=== PATIENT | male | born 1935 | race Caucasian/White ===

== ENCOUNTER 2024-10-14 09:59 | Emergency (ER) | payer MEDICARE, OTHER, SELFPAY ==
--- OUTSIDE RECORDS SUMMARY | 2024-10-14 10:01 | XMS_ITS | Clinical Summary ---
Author Organization [employer] [facility] Address [place], [place] [address] Care Team Providers Care Psych Specialist Name Role Phone Pcp, No Primary Care Provider Unavailabl e Allergies No known active allergies Medications omeprazole 20 mg tablet Take 1 Tablet (20 mg) by mouth once daily before a meal. 0 3 Active medication order composer Vitamins: - vitamin C - calcium - glucosamine - armida - arnica - tumeric - multivitamin - fish oil - saw palmetto 4 Active carbidopa-levod opa, 25-100 mg, (Sinemet) 25-100 mg tabletIndicatio ns:Parkinson disease, symptomatic (HC) Take 1 Tablet by mouth three times daily. 270 Tablet 3 4 Active predniSONE (DELTASONE) 20 mg tabletIndicatio ns:Acute left ankle pain 2 tabs daily for 3 days, 1 tab daily for 3 days, and 1/2 tab daily for 4 days. 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 Office Visit [facility] [address] [place] [address] Alexei Luong MD Musculoskeletal Problem (Consultation for LEFT Ankle pain /DOO about 3 weeks ago.) 10/02/2024 1:15 PM CHILD WELFARE WORKER Ancillary Procedure [facility] [address] [place] [address] 10/02/2024 Travel from Last 3 Months Social History Tobacco Use Types Packs/Day Years Used Date Smoking Tobacco: Former Cigarettes Smokeless Tobacco: Never Tobacco Cessation:Counseling Given: Yes Alcohol Use Standard Drinks/Week Comments Yes 0 (1 standard drink = 0.6 oz pur e alcohol) minimal wine PHQ-2 Answer Date Recorded PHQ-2 TOTAL SCORE 0 05/01/2024 Social Connections Answer Date Recorded Do you often feel lonely or isolated from those around you? 0 05/01/2024 Financial Resource Strain Answer Date R ecorded Difficulty of Paying Living Expenses 3 05/01/2024 Difficulty of Paying Living Expenses Not on file 05/01/2024 Food Insecurity Answer Date Recorded Do you worry your food will run out before you are able to buy more? 1 05/01/2024 Transportation Needs Answer Date Record ed Does lack of transportation keep you from medica l appointments? 1 05/01/2024 Does lack of transportation keep you from work, meetings or getting things that you need? 1 05/01/2024 Housing Stability Answer Date Recorded What is your housing situation today? 1 05/01/2024 Utilities Answer Date Recorded Do you have trouble paying f or utilities (for example, heat, electricity, water, phone)? 1 05/01/2024 Sex and Gender Information Value Date Recorded Sex Assigned at Not on file Legal Sex Male 9:46 AM CDT Gender Identity Not on file Sexual Orientation Not on file Obstetrics History Last Filed Vital Signs Vital Sign Reading Time Taken Comments Blood Pressure 177/76 10/02/2024 1:56 PM CHILD WELFARE WORKER Pulse 78 10/02/2024 1:56 PM CHILD WELFARE WORKER Temperature 36.7 C (98.1 F) 06/22/2023 3:08 PM CDT Respiratory Rate - - Oxygen Saturation 100% 10/02/2024 1:56 PM CHILD WELFARE WORKER Inhaled Oxygen Concentration - - Weight 67.9 kg (149 lb 9.6 oz) 10/02/2024 1:56 P M CHILD WELFARE WORKER Height 172.7 cm (5' 8) 05/01/2024 9:07 AM CDT Body Mass Index 22.75 05/01/2024 9:07 AM CDT Plan of Treatment Health Maintenance Due Date Last Done Comments Tdap 1946 Tetanus booster 1955 Pneumococcal series for age 50+ (1 of 1 - PCV) 1985 Zoster (shingles) series for age 50+ (1 of 2) 1985 RSV vaccine for adults or (1 - 1-dose 75+ series) 2010 COVID-19 vaccine series ( season) 2024 Influenza for age 65+ 05/06/2024 BMI (ht and wt on same day) for age 18+ 05/01/2025 05/01/2024 Depression screening for age 12+ 05/02/2025 05/02/2024, 05/02/2024, 05/01/2024, Additional history exists Medicare Wellness for age 65+ 05/02/2025 05/01/2024 Procedures Procedure Name Priority Date/Time Associated Diagnosis Comments XR ANKLE 3 VIEWS LEFT Routine 10/02/2024 3:06 PM CHILD WELFARE WORKER Acute left ankle pain from Last 3 Months Results * XR ANKLE 3 VIEWS LEFT (10/02/2024 3:06 PM CHILD WELFARE WORKER) Anatomical Region Laterality Modality ANKLES, ANKLE L Computed Radiogr aphy 10/02/2024 3:24 PM CHILD WELFARE WORKER Narrative 10/02/2024 3:24 PM CHILD WELFARE WORKER For Patients: As a result of the Century Cures Act, medical imaging exams and procedure reports are released immediately into your electronic medical record. You may view this report before your referring provider. If you have questions, please contact your health care provider. Indication: Left ankle pain Technique: Left ankle 3 views Comparison: None Findings: Vascular calcifications. Soft tissue densities posterior to the Achilles tendon. Incompletely ossified posterior calcaneal spur. Heterotopic densities associated with the plantar fascia. Plantar calcaneal spur. Tibiotalar spurring. Intact mortise. No acute fracture. Impression: No sign of acute injury. 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 Dictated by Jimi Hatch MD @ 10/02/2024 3:24:07 PM (Electronically Signed) Procedure Note Jimi Hatch MD - 10/02/2024 For Patients: As a result of the Century Cures Act, medical imagingexams and procedure reports are released immediately into your electronicmedical record. You may view this report before your referring provider.If you have questions, please contact your health care provider. Indication: Left ankle pain Technique: Left ankle 3 views Comparison: None Findings: Vascular calcifications. Soft tissue densities posterior to the Achillestendon. Incompletely ossified posterior calcaneal spur. Heterotopicdensities associated with the plantar fascia. Plantar calcaneal spur.Tibiotalar spurring. Intact mortise. No acute fracture. Impression: No sign of acute injury. Degenerative joint disease and calcaneal spurswith chronic Achilles tendinosis and plantar fasciitis. Dictated by Jimi Hatch MD @ 10/02/2024 3:24:07 PM (Electronically Signed) Alexei Luong MD GENERAL IMAGING Final Res ult from Last 3 Months Insurance MEDICARE [place] ONLY COMMERCIAL Care Teams Psych Specialist Relationship Specialty Start Date End Date Pcp, No . PCP - General 08/05/23
[2024-10-14 10:14] VITALS: BP 166/85; PULSE 84; RESP 18; TEMP 36.8; O2SAT 97; BMI 21.9
--- NOTE | 2024-10-14 10:26 | ED.GENADULT ---
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 He has done well with short course of prednisone physical therapy but has not had treatment for some time. He has had normal x-rays with the exception of the arthritic changes and has no history of gout. No recent injuries. The pain is been progressing for the last several days and now is to the point where he came to the emergency room. Pain is moderate. Patient can bear weight without any difficulty. No skin breakdown no fevers or chills. Related Data Home Medications ?Medication ?Instructions ?Recorded ?Confirmed No Known Home Medications 10/14/24 10/14/24 Allergies Allergy/AdvReac Type Severity Reaction Status Date / Time No Known Drug Allergies Allergy Verified 10/14/24 10:13 Review of Systems Status of ROS: Reports: 10 or more systems reviewed and unremarkable except as noted in History and below Exam Narrative: Exam Narrative: EXAM GENERAL: Patient appears comfortable and well. EYES: No scleral icterus. ENT: Tympanic membranes and oropharynx normal. THYROID: no thyroid nodules or thyromegaly. LYMPH: No supraclavicular or cervical lymphadenopathy. SKIN: Visible skin seen during exam normal or with benign process only. EXT: No dependent lower extremity pedal edema. HEART: Regular rate and rhythm with no murmurs, rubs, or gallops. LUNGS: Clear to auscultation bilaterally with no crackles or wheezes. ABD: Soft, non tender, non distended. PSYCH: Good eye contact, speech is not pressured. Examination of the left ankle shows normal mortise with a normal range of motion no pain to palpation no swelling. Const: Vital Signs, click to edit/add: Vital Signs - 24 hr 10/14/24 10:14 Temperature 98.2 F Pulse Rate [Pulse Oximeter] 84 Respiratory Rate 18 Blood Pressure [Ri ght Upper Arm] 166/85 H Pulse Oximetry 97 Oxygen Delivery Me thod Room Air Course Vital Signs Vital signs: Initial Vital Signs Temperature 98.2 F 10/14/24 10:14 Temperature Source Temporal Artery Scan 10/14/24 10:14 Pulse Rate 84 10/14/24 10:14 Respiratory Rate 18 10/14/24 10:14 Blood Pressure 166/85 H 10/14/24 10:14 Blood Pressure Mean 112 H 10/14/24 10:14 Pulse Oximetry 97 10/14/24 10:14 Oxygen Delivery Method Room Air 10/14/24 10:14 Vital Signs Temperature 98.2 F 10/14/24 10:14 Pulse Rate 84 10/14/24 10:14 Respiratory Rate 18 10/14/24 10:14 Blood Pressure 166/85 H 10/14/24 10:14 Pulse Oximetry 97 10/14/24 10:14 Oxygen Delivery Method Room Air 10/14/24 10:14 Temperature 98.2 F 10/14/24 10:14 Pulse Rate 84 10/14/24 10:14 Respiratory Rate 18 10/14/24 10:14 Blood Pressure 166/85 H 10/14/24 10:14 Pulse Oximetry 97 10/14/24 10:14 Oxygen Delivery Method Room Air 10/14/24 10:14 Medical Decision Making MDM Narrative Medical decision making narrative: Patient presents with a monoarthritis of the left ankle. Differential diagnosis would include but not limited to gout osteoarthritis rheumatoid arthritis injury infection. This time will treat him with a short course of prednisone 20 mg b.i.d. ice and he will follow-up with his primary physician this coming week for ongoing care. Discharge Plan Discharge Clinical Impression: Acute ankle pain Patient Disposition: Home, Self-Care Condition: Stable Instructions: Arthralgia (ED) Additional Instructions: Prednisone as directed Ice Follow-up with your doctor this coming week. Tylenol 650 mg 4 times a day as needed for pain. Activity Level: No Restrictions Discharge Diet: Regular Prescriptions: No Action No Known Home Medications Stand Alone Forms: [employer] Info Instructions
--- OUTSIDE RECORDS SUMMARY | 2024-10-14 11:05 | XMS_ITS | Clinical Summary ---
Author Organization [employer] [facility] Address [place], [place] [address] Care Team Providers Care Chemicals Fermentation Operator Name Role Phone Pcp, No Primary Care [...] Type Department Care Team Description 10/12/2024 Refill [facility] [address] [place] [address] Alexei Luong MD Refill Request (Prednisone) 10/02/2024 1:50 PM DEVELOPMENT REP Office Visit [facility] [address] [place] [address] Alexei Luong MD Musculoskeletal Problem (Consultation for LEFT Ankle pain /DOO about 3 weeks ago.) 10/02/2024 1:15 PM DEVELOPMENT REP Ancillary Procedure [facility] [address] [place] [address] 10/02/2024 Travel from Last 3 [...] Comments Blood Pressure 177/76 10/02/2024 1:56 PM DEVELOPMENT REP Pulse 78 10/02/2024 1:56 PM DEVELOPMENT REP Temperature 36.7 C (98.1 F) 06/22/2023 3:08 PM CDT Respiratory Rate - - Oxygen Saturation 100% 10/02/2024 1:56 PM DEVELOPMENT REP Inhaled Oxygen Concentration - - Weight 67.9 kg (149 lb 9.6 oz) 10/02/2024 1:56 P M DEVELOPMENT REP Height 172.7 cm (5' 8) 05/01/2024 9:07 [...] 3 VIEWS LEFT Routine 10/02/2024 3:06 PM DEVELOPMENT REP Acute left ankle pain from Last 3 Months Results * XR ANKLE 3 VIEWS LEFT (10/02/2024 3:06 PM DEVELOPMENT REP) Anatomical Region Laterality Modality ANKLES, ANKLE L Computed Radiogr aphy 10/02/2024 3:24 PM DEVELOPMENT REP Narrative 10/02/2024 3:24 PM DEVELOPMENT REP For Patients: As a result of the [...] Insurance MEDICARE [place] ONLY COMMERCIAL Care Teams Chemicals Fermentation Operator Relationship Specialty Start Date End Date Pcp, No . PCP - General 08/05/23
== END 2024-10-14 10:40 | disposition home or self-care (01) ==
LOC: ED 11:04
PROVIDERS: Emergency Provider Internal Medicine; PCP Family Medicine
DX: M19.072 Primary osteoarthritis, left ankle and foot (principal)
CPT/HCPCS: 99283

== ENCOUNTER 2025-01-08 14:30 | Outpatient (RCR) | payer MEDICARE, OTHER, SELFPAY | END 2025-02-20 07:44 | disposition home or self-care (01) | PROVIDERS: PCP Family Medicine; Visit Provider Family Medicine | DX: M25.572 Pain in left ankle and joints of left foot (principal); Z51.89 Encounter for other specified aftercare | CPT/HCPCS: 97110; 97116; 97140; 97161 ==